=== PATIENT | male | born 1990 | race Hispanic/Latino ===

== ENCOUNTER 2017-10-02 21:29 | Emergency (ER) | payer SELFPAY ==
[2017-10-02 23:00] LABS: Absolute Lymphocytes (CBC) 2.5 K/uL (0.7-4.9); Absolute Monocytes 0.5 K/uL (0.1-1.3); Absolute Neutrophil 3.3 K/uL (1.8-8.0); Basophils % 0.7 % (0-1.3); Eosinophils % 2.6 % (0-4.4); Hematocrit 44.6 % (39.6-49.0); Lymphocytes % 38.6 % (15.3-44.8); MCH 28.5 pg (27.0-35.0); MCV 84.6 fL (80-100); MPV 8.5 fL (7.6-11.3); Monocytes % 7.4 % (3.3-12.3); RBC Red Blood Cell Count 5.27 M/uL (4.33-5.43)
[2017-10-02 23:04] LABS: Bicarbonate 28 mEq/L (21-31); Glucose Level 99 mg/dL (65-120); Potassium 3.5 mEq/L (3.6-5.0); Sodium Level 136 mEq/L (135-145)
[2017-10-02 23:05] LABS: BUN Blood Urea Nitrogen 10 mg/dL (6-20)
[2017-10-02 23:26] LABS: Urine Blood NEGATIVE (NEG); Urine Glucose NEGATIVE (NEG); Urine Protein NEGATIVE (NEG)
--- NOTE | 2017-10-03 00:08 | ER ---
Nurse's Notes [facility] Name: Franco Boone Age: 27 yrs Sex: Male : 1990 Arrival Date: 10/02/2017 Time: 21:33 Bed 15 Private MD: Diagnosis: Person with feared health complaint in whom no diagnosis is made Presentation: 10/02 21:38 Presenting complaint: Patient states: I have been very anxious, having a headache, and la1 dizzy for the past week. Transition of care: patient was not received from another setting of care. Onset of symptoms was October 02, 2017. Initial Sepsis Screen: Does the patient meet any 2 criteria? No. Patient's initial sepsis screen is negative. Does the patient have a suspected source of infection? No. Patient's initial sepsis screen is negative. Care prior to arrival: None. 21:38 Method Of Arrival: Ambulatory la1 21:38 Acuity: JOSE 3 la1 Historical: - Allergies: 21:39 No Known Allergies; la1 - PMHx: 21:39 None; la1 - Immunization history:: Adult Immunizations up to date. - Social history:: Smoking status: Patient/guardian denies using tobacco. Screenin:43 Abuse screen: Denies threats or abuse. Denies injuries from another. Nutritional mg2 screening: No deficits noted. Tuberculosis screening: No symptoms or risk factors identified. 22:06 Fall Risk None identified. mg2 Assessment: 22:04 General: Appears in no apparent distress. comfortable, Behavior is calm, cooperative. mg2 Pain: Complains of pain in head Pain does not radiate. Pain currently is 2 out of 10 on a pain scale. Quality of pain is described as aching, Pain began 1 week ago Is intermittent, Alleviated by rest. Neuro: Level of Consciousness is awake, alert, obeys commands, Oriented to person, place, time, situation. Cardiovascular: Capillary refill < 3 seconds Patient's skin is warm and dry. Respiratory: Airway is patent Respiratory effort is even, unlabored. GI: No signs and/or symptoms were reported involving the gastrointestinal system. : No signs and/or symptoms were reported regarding the genitourinary system. EENT: No signs and/or symptoms were reported regarding the EENT system. Derm: Skin is intact, Skin is pink, warm \T\ dry. normal. Musculoskeletal: No signs and/or symptoms reported regarding the musculoskeletal system. 10/03 00:30 Reassessment: Patient appears in no apparent distress at this time. Patient is alert, mg2 oriented x 3, equal unlabored respirations, skin warm/dry/pink. Discussed d/c \T\ f/u instructions with pt and mother; denies questions or concerns at this time Patient denies pain at this time. Patient states feeling better. Vital Signs: 10/02 21:39 BP 124 / 77; Pulse 92; Resp 19; Temp 98.2; Pulse Ox 100% on R/A; Weight 58.97 kg; la1 Height 5 ft. 5 in. (165.10 cm); 23:08 BP 130 / 74; Pulse 89; Resp 18; Pulse Ox 100% on R/A; Pain 0/10; mg2 23:18 BP 116 / 72 Supine; aa1 23:18 BP 132 / 72 Sitting; aa1 23:18 BP 135 / 85 Standing; aa1 10/03 00:30 BP 117 / 83; Pulse 79; Resp 16; Pulse Ox 98% on R/A; Pain 0/10; mg2 10/02 21:39 Body Mass Index 21.63 (58.97 kg, 165.10 cm) la1 ED Course: 10/02 21:33 Patient arrived in ED. es 21:39 Triage completed. la1 21:39 Arm band placed on left wrist. la1 21:42 Vj High, HAIM is Primary Nurse. mg2 21:47 Bobby Wahl PA is PHCP. cp 21:47 Anthony Joseph MD is Attending Physician. cp 22:06 Patient has correct armband on for positive identification. Bed in low position. Call mg2 light in reach. 23:00 XRAY Chest (1 view) In Process Unspecified. EDMS 23:06 No provider procedures requiring assistance completed. Inserted saline lock: 22 gauge mg2 in left antecubital area, using aseptic technique. Blood collected. Patient maintains SpO2 saturation greater than 95% on room air. 10/03 00:30 IV discontinued, intact, bleeding controlled, No redness/swelling at site. Pressure mg2 dressing applied. Administered Medications: No medications were administered Outcome: 00:08 Discharge ordered by . cp 00:30 Discharged to home ambulatory, with family. mg2 00:30 Condition: good 00:30 Discharge instructions given to patient, family, Instructed on discharge instructions, follow up and referral plans. Demonstrated understanding of instructions, follow-up care. 00:32 Patient left the ED. mg2 Signatures: Dispatcher [employer] Kim Gillespie, RN RN aa1 April Jeter Lee RN RN la1 Bobby Wahl PA PA cp [place], Michele RN RN mg2
--- NOTE | 2017-10-03 00:08 | EDPHYS ---
Physician Documentation [facility] Name: Franco Boone Age: 27 yrs Sex: Male : 1990 Arrival Date: 10/02/2017 Time: 21:33 Bed 15 Private MD: ED Physician Anthony Joseph HPI: 10/02 22:35 This 27 yrs old Male presents to ER via Ambulatory with complaints of Anxiety, cp Dizziness, Dehydration, Near Syncope. 22:35 The patient presents with dizziness. cp 22:35 Onset: The symptoms/episode began/occurred 1 week(s) ago, intermittent. Associated cp signs and symptoms: Pertinent positives: near-syncope, dehydration, anxiety, Pertinent negatives: abdominal pain, blurred vision, chest pain, focal weakness, headache, vomiting. Severity of symptoms: in the emergency department the symptoms none. Patient's baseline: Neuro: alert and fully oriented, Motor: no deficits, Ambulation: walks without assistance, Speech: normal. Historical: - Allergies: 21:39 No Known Allergies; la1 - PMHx: 21:39 None; la1 - Immunization history:: Adult Immunizations up to date. - Social history:: Smoking status: Patient/guardian denies using tobacco. ROS: 22:40 Constitutional: Negative for body aches, chills, fever, poor PO intake. cp 22:40 Eyes: Negative for injury, pain, redness, and discharge. cp 22:40 ENT: Negative for drainage from ear(s), ear pain, sore throat, difficulty swallowing, difficulty handling secretions. 22:40 Cardiovascular: Negative for chest pain, edema, palpitations. 22:40 Respiratory: Negative for cough, shortness of breath, wheezing. 22:40 Abdomen/GI: Negative for abdominal pain, nausea, vomiting, and diarrhea, constipation, anorexia, black/tarry stool, rectal bleeding. 22:40 Skin: Negative for cellulitis, rash. 22:40 Neuro: Negative for altered mental status, gait disturbance, headache, loss of consciousness, syncope, near syncope, weakness. 22:40 All other systems are negative. Exam: 22:45 Constitutional: The patient appears in no acute distress, alert, awake, cp non-diaphoretic, non-toxic, well developed, well nourished. 22:45 Head/Face: Normocephalic, atraumatic. Eyes: Pupils equal round and reactive to light, cp extra-ocular motions intact. Lids and lashes normal. Conjunctiva and sclera are non-icteric and not injected. Cornea within normal limits. Periorbital areas with no swelling, redness, or edema. ENT: Nares patent. No nasal discharge, no septal abnormalities noted. Tympanic membranes are normal and external auditory canals are clear. Oropharynx with no redness, swelling, or masses, exudates, or evidence of obstruction, uvula midline. Mucous membranes moist. Neck: Trachea midline, no thyromegaly or masses palpated, and no cervical lymphadenopathy. Supple, full range of motion without nuchal rigidity, or vertebral point tenderness. No Meningismus. Chest/axilla: Normal chest wall appearance and motion. Nontender with no deformity. No lesions are appreciated. Cardiovascular: Regular rate and rhythm with a normal S1 and S2. No gallops, murmurs, or rubs. Normal PMI, no JVD. No pulse deficits. Respiratory: Lungs have equal breath sounds bilaterally, clear to auscultation and percussion. No rales, rhonchi or wheezes noted. No increased work of breathing, no retractions or nasal flaring. Abdomen/GI: Soft, non-tender, with normal bowel sounds. No distension or tympany. No guarding or rebound. No evidence of tenderness throughout. Skin: Warm, dry with normal turgor. Normal color with no rashes, no lesions, and no evidence of cellulitis. Neuro: Awake and alert, GCS 15, oriented to person, place, time, and situation. Cranial nerves II-XII grossly intact. Motor strength 5/5 in all extremities. Sensory grossly intact. Cerebellar exam normal. Normal gait. 22:52 ECG was reviewed by the Attending Physician. cp Vital Signs: 21:39 BP 124 / 77; Pulse 92; Resp 19; Temp 98.2; Pulse Ox 100% on R/A; Weight 58.97 kg; la1 Height 5 ft. 5 in. (165.10 cm); 23:08 BP 130 / 74; Pulse 89; Resp 18; Pulse Ox 100% on R/A; Pain 0/10; mg2 23:18 BP 116 / 72 Supine; aa1 23:18 BP 132 / 72 Sitting; aa1 23:18 BP 135 / 85 Standing; aa1 10/03 00:30 BP 117 / 83; Pulse 79; Resp 16; Pulse Ox 98% on R/A; Pain 0/10; mg2 10/02 21:39 Body Mass Index 21.63 (58.97 kg, 165.10 cm) la1 MDM: 10/02 21:47 Patient medically screened. 23:00 Differential diagnosis: cardiac arrhythmia, hypovolemia, idiopathic dizziness, vertigo, cp electrolyte abnormality. 10/03 00:05 Data reviewed: vital signs, nurses notes, lab test result(s), EKG, and as a result, I cp will discharge patient. 00:05 Test interpretation: by ED physician or midlevel provider: ECG. 00:05 Counseling: I had a detailed discussion with the patient and/or guardian regarding: the cp historical points, exam findings, and any diagnostic results supporting the discharge/admit diagnosis, lab results, the need for outpatient follow up, a family practitioner, to return to the emergency department if symptoms worsen or persist or if there are any questions or concerns that arise at home. 10/02 22:32 Order name: Basic Metabolic Panel; Complete Time: 23:31 cp 10/02 23:31 Interpretation: Normal except: K 3.5. 10/02 22:32 Order name: CBC with Diff; Complete Time: 23:31 10/02 23:32 Interpretation: Reviewed. 10/02 22:32 Order name: EKG; Complete Time: 22:32 cp 10/02 22:32 Order name: Magnesium; Complete Time: 23:31 cp 10/02 22:32 Order name: XRAY Chest (1 view) 10/02 23:23 Order name: Urine Dipstick--Ancillary (enter results); Complete Time: 23:31 mw2 10/02 23:32 Interpretation: Normal except: UESTR TRACE. 10/02 22:32 Order name: Orthostatics; Complete Time: 00:24 cp 10/02 22:32 Order name: EKG - Nurse/Tech; Complete Time: 23:06 10/02 22:32 Order name: Cardiac monitoring; Complete Time: 23:06 10/02 22:32 Order name: IV Saline Lock; Complete Time: 23:06 cp 10/02 22:32 Order name: Labs collected and sent; Complete Time: 23:06 10/02 22:32 Order name: O2 Per Protocol; Complete Time: 23:06 cp 10/02 22:32 Order name: O2 Sat Monitoring; Complete Time: 23:06 cp 10/02 22:32 Order name: Urine Dipstick-Ancillary (obtain specimen); Complete Time: 00:24 cp EC/20 22:52 Rate is 86 beats/min. Rhythm is regular. IN interval is normal. QRS interval is normal. cp QT interval is normal. No ST changes noted. Interpreted by me. Reviewed by me. Administered Medications: No medications were administered Disposition: 10/03 06:23 Co-signature as Attending Physician, Anthony Joseph MD. henry Disposition: 10/03/17 00:08 Discharged to Home. Impression: Person with feared health complaint in whom no diagnosis is made. - Condition is Stable. - Medication Reconciliation Form, Thank You Letter, Antibiotic Education, Prescription Opioid Use, Work release form form. - Follow up: Private Physician; When: 1 - 2 days; Reason: Recheck today's complaints. - Problem is new. - Symptoms have improved. Signatures: Dispatcher [employer] EDMS Anthony Joseph MD MD pkl Gilberto Lowery RN RN la1 Bobby Wahl PA PA cp Vj High RN RN mg2 Corrections: (The following items were deleted from the chart) 00:09 00:08 10/03/2017 00:08 Discharged to Home. Impression: Dizziness. Condition is Stable. cp Forms are Medication Reconciliation Form, Thank You Letter, Antibiotic Education, Prescription Opioid Use. Follow up: Private Physician; When: 1 - 2 days; Reason: Recheck today's complaints. Problem is new. Symptoms have improved. cp 00:32 00:09 10/03/2017 00:08 Discharged to Home. Impression: Person with feared health mg2 complaint in whom no diagnosis is made. Condition is Stable. Discharge Instructions: Dehydration, Adult, Dizziness. Forms are Medication Reconciliation Form, Thank You Letter, Antibiotic Education, Prescription Opioid Use. Follow up: Private Physician; When: 1 - 2 days; Reason: Recheck today's complaints. Problem is new. Symptoms have improved. cp
--- NOTE | 2017-10-03 07:59 | EKG ---
Test Date: 2017-10-02 Test Time: 22:46:56 Multifocal Button Generator: MG MEASUREMENT RESULTS: Intervals: Rate: 86 [place]: 136 QRSD: 98 QT: 370 QTc: 442 [place]: P: 61 AZ: 136 QRS: 69 T: 50 INTERPRETIVE STATEMENTS: Normal sinus rhythm with sinus arrhythmia Normal ECG No previous ECG available for comparison Electronically Signed On 10-03-17 07:58:28 CDT by Monico Wells
--- NOTE | 2017-10-03 09:11 | RAD REPORT ---
EXAM DESCRIPTION: Eric Single View10/02/2017 11:00 pm CLINICAL HISTORY: Chest pain COMPARISON: none FINDINGS: The lungs appear clear of acute infiltrate. The heart is normal size IMPRESSION: No acute abnormalities displayed
== END 2017-10-03 00:32 | disposition home or self-care (01) ==
LOC: ER 21:29
DX: Z71.1 Person with feared health complaint in whom no diagnosis is made (principal)
CPT/HCPCS: 36415; 71045; 80048; 81003; 83735; 85025; 93005; 99284

== ENCOUNTER 2018-12-27 14:59 | Emergency (ER) | payer SELFPAY ==
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
--- NOTE | 2018-12-27 16:53 | RAD REPORT ---
EXAM DESCRIPTION: Eric Single View12/27/2018 3:33 pm CLINICAL HISTORY: Chest pain COMPARISON: 09/2017 FINDINGS: The lungs appear clear of acute infiltrate. The heart is normal size IMPRESSION: No acute abnormalities displayed
== END 2018-12-27 16:56 | disposition home or self-care (01) ==
LOC: ER 14:59
DX: R07.89 Other chest pain (principal); V43.53XA Car driver injured in collision with pick-up truck in traffic accident, initial encounter
CPT/HCPCS: 70450; 71045; 72125

== ENCOUNTER 2020-12-08 09:42 | Emergency (ER) | payer SELFPAY ==
[2020-12-08] MEDS ORDERED: LORAZEPAM 1 MG TABLET ONE (10:16)
--- NOTE | 2020-12-09 08:01 | EKG ---
Test Date: 2020-12-08 Test Time: 10:01:36 Criminal Justice Social Worker: PH MEASUREMENT RESULTS: Intervals: Rate: 95 IL: 130 QRSD: 86 QT: 350 QTc: 439 [place]: P: 40 IL: 130 QRS: 51 T: 35 INTERPRETIVE STATEMENTS: Normal sinus rhythm with sinus arrhythmia Normal ECG Compared to ECG 10/02/2017 22:46:56 No significant changes Electronically Signed On 12-09-20 07:57:50 CDT by Poncho Borden
--- NOTE | 2020-12-09 17:17 | EDPHYS ---
Physician Documentation [facility] Name: Franco Boone Age: 30 yrs Sex: Male : 1990 Arrival Date: 12/08/2020 Time: 09:47 Bed 15 Private MD: ED Physician Donavon Church HPI: 12/08 10:04 This 30 yrs old Male presents to ER via EMS with complaints of Anxiety. 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 Onset: The symptoms/episode rn began/occurred just prior to arrival. Duration: The symptoms are continuous, but are markedly better than the original presentation. The patient's shortness of breath is aggravated by nothing, is alleviated by rest. Associated signs and symptoms: Pertinent positives: numbness in extremities, Pertinent negatives: non-productive cough, productive cough, fever, hemoptysis. Severity of symptoms: At their worst the symptoms were moderate in the emergency department the symptoms have improved. The patient has experienced similar episodes in the past. The patient has not recently seen a physician. 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 Has happened multiple times before, has anxiety. Feels much better now with no intervention other than supplemental oxygen. Denies chest pain. No recent illness or infectious symptoms.. Historical: - Allergies: 09:49 No Known Allergies; ph - PMHx: :49 Anxiety; ph - Immunization history:: Client reports having NOT received the Covid vaccine. - Social history:: Smoking status: Patient/guardian denies using tobacco, Stopped _ months ago 2. - Family history:: not pertinent. - Hospitalizations: : No recent hospitalization is reported. ROS: 10:04 Constitutional: Negative for fever, chills, and weight loss, Eyes: Negative for injury, rn pain, redness, and discharge, Neck: Negative for injury, pain, and swelling, Cardiovascular: Negative for chest pain, palpitations, and edema, Respiratory: Negative for cough, wheezing, and pleuritic chest pain, Abdomen/GI: Negative for abdominal pain, nausea, vomiting, diarrhea, and constipation, : Negative for injury, bleeding, discharge, and swelling, MS/Extremity: Negative for injury and deformity, Skin: Negative for injury, rash, and discoloration, Neuro: Negative for headache, weakness, numbness, tingling, and seizure. Exam: 10:04 Constitutional: This is a well developed, well nourished patient who is awake, alert, rn and in no acute distress. Head/Face: Normocephalic, atraumatic. Eyes: Pupils equal round and reactive to light, extra-ocular motions intact. Lids and lashes normal. Conjunctiva and sclera are non-icteric and not injected. Cornea within normal limits. Periorbital areas with no swelling, redness, or edema. ENT: No stridor or oral swelling Cardiovascular: Regular rate and rhythm . No pulse deficits. Respiratory: Speaking full sentences, unlabored. No increased work of breathing, no retractions or nasal flaring. Abdomen/GI: Soft, non-tender Skin: Warm, dry MS/ Extremity: Pulses equal, no cyanosis Neuro: Awake and alert, GCS 15, oriented to person, place, time, and situation. Cranial nerves II-XII grossly intact. Motor strength 5/5 in all extremities. Sensory grossly intact. 10:11 ECG was reviewed by the Attending Physician. rn Vital Signs: 10:18 BP 118 / 83; Pulse 84; Resp 18; Temp 97.8; Pulse Ox 99% on R/A; Weight 58.97 kg; Height ph 5 ft. 5 in. (165.10 cm); 11:02 BP 112 / 78; Pulse 82; Resp 18; Temp 97.3; Pulse Ox 99% on R/A; ph 10:18 Body Mass Index 21.63 (58.97 kg, 165.10 cm) ph MDM: 09:48 Patient medically screened. rn 10:28 Differential diagnosis: Anxiety Reaction Psychogenic Arrhythmia, palpitations. Data rn reviewed: vital signs, nurses notes, EKG, and as a result, I will discharge patient. Counseling: I had a detailed discussion with the patient and/or guardian regarding: the historical points, exam findings, and any diagnostic results supporting the discharge/admit diagnosis, the need for outpatient follow up, to return to the emergency department if symptoms worsen or persist or if there are any questions or concerns that arise at home. Special discussion: I discussed with the patient/guardian in detail that at this point there is no indication for admission to the hospital. It is understood, however, that if the symptoms persist or worsen the patient needs to return immediately for re-evaluation. ED course: Normal vital signs, normal EKG, improved with p.o. Ativan. Will DC home with PCP follow-up. Instructed to follow-up with psychiatry if anxiety worsens.. 12/08 09:48 Order name: EKG; Complete Time: 09:49 rn 12/08 09:48 Order name: EKG - Nurse/Tech; Complete Time: 10:18 rn EC:11 Rate is 95 beats/min. Rhythm is regular. QRS [place] is Normal. NV interval is normal. QRS rn interval is normal. QT interval is normal. No Q waves. T waves are Normal. No ST changes noted. Clinical impression: Normal ECG. Interpreted by me. Reviewed by me. Administered Medications: 10:18 Drug: Ativan (LORazepam) 1 mg Route: PO; ph 11:03 Follow up: Response: No adverse reaction; Anxiety decreased ph Disposition Summary: 12/08/20 10:30 Discharge Ordered Location: Home rn Problem: new rn Symptoms: have improved rn Condition: Stable rn Diagnosis - Hyperventilation rn - Anxiety disorder, unspecified rn Followup: rn - With: Private Physician - When: As needed - Reason: Recheck today's complaints, Re-evaluation by your physician Discharge Instructions: - Discharge Summary Sheet rn - Panic Attack rn - Hyperventilation rn - Generalized Anxiety Disorder, Adult rn Forms: - Medication Reconciliation Form rn - Thank You Letter rn - 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
--- NOTE | 2020-12-09 17:17 | ER ---
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 Coronavirus screen: Client denies travel out of the [place] in the last 14 days. At this time, the client does not indicate any symptoms associated with coronavirus-19. Ebola Screen: No symptoms or risks identified at this time. Initial Sepsis Screen: Does the patient meet any 2 criteria? No. Patient's initial sepsis screen is negative. Does the patient have a suspected source of infection? No. Patient's initial sepsis screen is negative. Risk Assessment: Do you want to hurt yourself or someone else? Patient reports no desire to harm self or others. Onset of symptoms was December 08, 2020. 09:47 Method Of Arrival: EMS: [facility] 09:47 Acuity: JOSE 3 ph Historical: - Allergies: 09:49 No Known Allergies; ph - PMHx: 09:49 Anxiety; ph - Immunization history:: Client reports having NOT received the Covid vaccine. - Social history:: Smoking status: Patient/guardian denies using tobacco, Stopped _ months ago 2. - Family history:: not pertinent. - Hospitalizations: : No recent hospitalization is reported. Screenin:50 Abuse screen: Denies threats or abuse. Denies injuries from another. Nutritional ph screening: No deficits noted. Tuberculosis screening: No symptoms or risk factors identified. Fall Risk None identified. Assessment: 10:18 General: Appears in no apparent distress. 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 Pain: Denies pain. Neuro: Level of Consciousness is awake, alert, obeys commands, Oriented to person, place, time, situation. Cardiovascular: Capillary refill < 3 seconds in bilateral fingers Patient's skin is warm and dry. Rhythm is sinus rhythm. Respiratory: Airway is patent Respiratory effort is even, unlabored, Respiratory pattern is regular, symmetrical. Derm: Skin is intact, is healthy with good turgor, Skin is pink, warm \T\ dry. Musculoskeletal: Circulation, motion, and sensation intact. Range of motion: intact in all extremities. 11:02 Reassessment: Patient appears in no apparent distress at this time. Patient and/or ph family updated on plan of care and expected duration. Pain level reassessed. Patient is alert, oriented x 3, equal unlabored respirations, skin warm/dry/pink. Vital Signs: 10:18 BP 118 / 83; Pulse 84; Resp 18; Temp 97.8; Pulse Ox 99% on R/A; Weight 58.97 kg; Height ph 5 ft. 5 in. (165.10 cm); 11:02 BP 112 / 78; Pulse 82; Resp 18; Temp 97.3; Pulse Ox 99% on R/A; ph 10:18 Body Mass Index 21.63 (58.97 kg, 165.10 cm) ph ED Course: 09:47 Patient arrived in ED. ph 09:48 Donavon Church MD is Attending Physician. rn 09:49 Triage completed. ph 09:49 Arm band placed on Patient placed in an exam room, on a stretcher. ph 09:50 Cheyanne Bansal RN is Primary Nurse. ph 09:50 Patient has correct armband on for positive identification. Placed in gown. Bed in low ph position. Call light in reach. Side rails up X 1. Pulse ox on. NIBP on. 11:03 No provider procedures requiring assistance completed. Patient did not have IV access ph during this emergency room visit. Administered Medications: 10:18 Drug: Ativan (LORazepam) 1 mg Route: PO; ph 11:03 Follow up: Response: No adverse reaction; Anxiety decreased ph Outcome: 10:30 Discharge ordered by . rn 11:03 Discharged to home ambulatory. ph 11:03 Condition: good 11:03 Discharge instructions given to patient, Instructed on discharge instructions, follow up and referral plans. Demonstrated understanding of instructions, follow-up care. 11:03 Patient left the ED. ph Signatures: Donavon Church MD MD rn PhoenixCheyanne RN RN ph
[2020-12-10 05:49] VITALS: O2SAT 99
[2020-12-10 05:51] VITALS: BP 112/78; TEMP 97.3
== END 2020-12-08 11:03 | disposition home or self-care (01) ==
LOC: ER 09:42
DX: R06.4 Hyperventilation (principal); F41.9 Anxiety disorder, unspecified
CPT/HCPCS: 93005

== ENCOUNTER 2021-01-05 11:33 | Emergency (ER) | payer SELFPAY ==
--- NOTE | 2021-01-05 13:48 | EDPHYS ---
Physician Documentation [facility] Name: Franco Boone Age: 30 yrs Sex: Male : 1990 Arrival Date: 01/05/2021 Time: 11:34 Bed 10 Private MD: ED Physician Donavon Church HPI: 01/05 13:44 This 30 yrs old Male presents to ER via Ambulatory with complaints of Acid jr8 Reflux - SOB. 13:44 Onset: The symptoms/episode began/occurred gradually. Modifying factors: The patient jr8 symptoms are alleviated by nothing, the patient symptoms are aggravated by eating food. The patient has experienced a previous episode. The patient has not recently seen a physician. This is a 30-year-old male that presented to the emergency room with complaints of gastroesophageal reflux. Stated that he has had this in the past and was treating it with naturopathic modalities. Stated that those modalities started to give him chest pain so had quit. Now having increased burning sensation, chest pain and shortness of breath for the reflux. Stated that is making him feel bloated. Denies hematemesis, hematochezia, melena. Historical: - Allergies: 12:52 No Known Allergies; kg - Home Meds: 12:52 [place] Anxiety \T\ Tension oral spray [Active]; betaine HCl 300 mg oral tab [Active]; kg - PMHx: 12:52 Anxiety; GERD; Gastritis; kg - PSHx: 12:52 None; kg - Immunization history:: Adult Immunizations not up to date, Client reports having NOT received the Covid vaccine. - Social history:: Smoking status: Patient/guardian denies using tobacco, Stopped _ months ago 5. ROS: 13:44 Eyes: Negative for injury, pain, redness, and discharge, ENT: Negative for injury, jr8 pain, and discharge, Neck: Negative for injury, pain, and swelling, Abdomen/GI: Positive for epigastric pain. Negative for nausea, vomiting, diarrhea, constipation Back: Negative for injury and pain, MS/Extremity: Negative for injury and deformity, Skin: Negative for injury, rash, and discoloration, Neuro: Negative for headache, weakness, numbness, tingling, and seizure. 13:44 Cardiovascular: Positive for chest pain, Negative for edema, orthopnea, palpitations, paroxysmal nocturnal dyspnea. 13:44 Respiratory: Positive for shortness of breath, Negative for cough, dyspnea on exertion, sputum production, wheezing. Exam: 13:44 Constitutional: This is a well developed, well nourished patient who is awake, alert, jr8 and in no acute distress. ENT: Nares patent. No nasal discharge, no septal abnormalities noted. Tympanic membranes are normal and external auditory canals are clear. Oropharynx with no redness, swelling, or masses, exudates, or evidence of obstruction, uvula midline. Mucous membranes moist. Cardiovascular: Regular rate and rhythm with a normal S1 and S2. No gallops, murmurs, or rubs. Normal PMI, no JVD. No pulse deficits. Respiratory: Lungs have equal breath sounds bilaterally, clear to auscultation and percussion. No rales, rhonchi or wheezes noted. No increased work of breathing, no retractions or nasal flaring. Abdomen/GI: Soft, non-tender, with normal bowel sounds. No distension or tympany. No guarding or rebound. No evidence of tenderness throughout. Back: No spinal tenderness. No costovertebral tenderness. Full range of motion. Skin: Warm, dry with normal turgor. Normal color with no rashes, no lesions, and no evidence of cellulitis. MS/ Extremity: Pulses equal, no cyanosis. Neurovascular intact. Full, normal range of motion. Neuro: Awake and alert, GCS 15, oriented to person, place, time, and situation. Cranial nerves II-XII grossly intact. Motor strength 5/5 in all extremities. Sensory grossly intact. Vital Signs: 12:50 BP 114 / 72; Pulse 84; Resp 20; Temp 98.6(TE); Pulse Ox 98% on R/A; Weight 58.97 kg kg (R); Height 5 ft. 5 in. (165.10 cm) (R); Pain 4/10; 12:50 Body Mass Index 21.63 (58.97 kg, 165.10 cm) kg MDM: 13:33 Patient medically screened. jr8 13:46 Data reviewed: vital signs, nurses notes, EKG. Data interpreted: Pulse oximetry: on jr8 room air is 98 %. Interpretation: normal. 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 ED course: Discussed with patient that we will put him on a proton pump inhibitor. Needs to follow-up with gastroenterology for further evaluation and assessment of his continued reflux disease. If he were to worsen at any point time in between now and then to come back for further evaluation. Patient good with plan at this time.. 01/05 13:46 Order name: EKG - Nurse/Tech; Complete Time: 13:53 jr8 Administered Medications: No medications were administered Disposition: 17:28 Co-signature as Attending Physician, Donavon Church MD I agree with the assessment and rn plan of care. Attestation: The patient's history, exam findings, diagnostics, and a summary of any interventions or procedures was reviewed in detail with Simba RUEDA. Disposition Summary: 01/05/21 13:48 Discharge Ordered Location: Home jr Problem: new jr8 Symptoms: have improved jr8 Condition: Stable jr8 Diagnosis - Gastro-esophageal reflux disease without esophagitis jr8 Followup: jr8 - With: Dell Velez MD - When: 1 week - Reason: Recheck today's complaints, Continuance of care, Re-evaluation by your physician Discharge Instructions: - Discharge Summary Sheet jr8 - Food Choices for Gastroesophageal Reflux Disease, Adult jr8 - Gastroesophageal Reflux Disease, Adult, [id number] jr8 Forms: - Medication Reconciliation Form jr8 - Thank You Letter jr8 - Antibiotic Education jr8 - Prescription Opioid Use jr8 Prescriptions: - omeprazole 40 mg Oral capsule,delayed release(DR/EC) - take 1 capsule by ORAL route once daily before a meal; 30 capsule; Refills: 0, jr8 Product Selection Permitted Signatures: Donavon Church MD MD rn Roszak, Josh, PA PA jr8 Lexus Ibarra RN RN kg
--- NOTE | 2021-01-05 13:48 | ER ---
Nurse's Notes [facility] Name: Franco Boone Age: 30 yrs Sex: Male : 1990 Arrival Date: 01/05/2021 Time: 11:34 Bed 10 Private MD: Diagnosis: Gastro-esophageal reflux disease without esophagitis Presentation: 01/05 12:50 Chief complaint: Patient states: Heart burn, vomiting acid, light headed, dizzy, kg difficult to breath, anxiety attacks x 2 months. Pt states that he has been diagnosed with gastritis and GERD in the past and trying to deal with it using homeopathic remedies. Coronavirus screen: Client denies travel out of the [place] in the last 14 days. At this time, unable to obtain information related to travel outside the [place] At this time, the client does not indicate any symptoms associated with coronavirus-19. Ebola Screen: Patient negative for fever greater than or equal to 101.5 degrees Fahrenheit, and additional compatible Ebola Virus Disease symptoms Patient denies exposure to infectious person. Patient denies travel to an Ebola-affected area in the 21 days before illness onset. No symptoms or risks identified at this time. Initial Sepsis Screen: Does the patient meet any 2 criteria? No. Patient's initial sepsis screen is negative. Does the patient have a suspected source of infection? No. Patient's initial sepsis screen is negative. Risk Assessment: Do you want to hurt yourself or someone else? Patient reports no desire to harm self or others. Onset of symptoms is unknown. 12:50 Method Of Arrival: Ambulatory kg 12:50 Acuity: JOSE 4 kg Triage Assessment: 12:52 General: Appears in no apparent distress. Behavior is calm, cooperative, appropriate kg for age, quiet. Pain: Complains of pain in epigastric area Pain does not radiate. Pain currently is 4 out of 10 on a pain scale. at worst was 8 out of 10 on a pain scale. level that patient reports is acceptable is 3 out of 10 on a pain scale. Historical: - Allergies: 12:52 No Known Allergies; kg - Home Meds: 12:52 Mason Anxiety \\T\\ Tension oral spray [Active]; betaine HCl 300 mg oral tab [Active]; kg - PMHx: 12:52 Anxiety; GERD; Gastritis; kg - PSHx: 12:52 None; kg - Immunization history:: Adult Immunizations not up to date, Client reports having NOT received the Covid vaccine. - Social history:: Smoking status: Patient/guardian denies using tobacco, Stopped _ months ago 5. Screenin:56 Abuse screen: Denies threats or abuse. Denies injuries from another. Nutritional kg screening: No deficits noted. Tuberculosis screening: No symptoms or risk factors identified. Fall Risk None identified. Assessment: 13:29 General: Appears in no apparent distress. comfortable, Behavior is calm, cooperative. ss Pain: Complains of pain in epigastric area Pain currently is 3 out of 10 on a pain scale. Quality of pain is described as burning, Is intermittent. Neuro: Level of Consciousness is awake, alert, obeys commands, Oriented to person, place, time, situation, Cell Cleaner are equal bilaterally. Cardiovascular: Capillary refill < 3 seconds is brisk in bilateral fingers. Respiratory: Reports "It's like at times I just can't get a good breath. I can breath, but just not take a good breath." Airway is patent Respiratory effort is even, unlabored, Respiratory pattern is regular, symmetrical. GI: Reports Intermittent acid reflux/ heart burn that began 2 months ago. Pt reports that when he would take medication it would help, but the meds seemed to be giving him chest pain, so he quit taking it. : No signs and/or symptoms were reported regarding the genitourinary system. EENT: Nares are clear Oral mucosa is moist. Throat is clear. Derm: Skin is intact, is healthy with good turgor, Skin is pink, warm \\T\\ dry. normal. Musculoskeletal: Circulation, motion, and sensation intact. Range of motion: intact in all extremities, Swelling absent. Vital Signs: 12:50 BP 114 / 72; Pulse 84; Resp 20; Temp 98.6(TE); Pulse Ox 98% on R/A; Weight 58.97 kg kg (R); Height 5 ft. 5 in. (165.10 cm) (R); Pain 4/10; 12:50 Body Mass Index 21.63 (58.97 kg, 165.10 cm) kg ED Course: 11:34 Patient arrived in ED. ds1 12:52 Triage completed. kg 12:52 Arm band placed on left wrist. kg 12:56 Patient has correct armband on for positive identification. kg 13:26 Simba Diza PA is PHCP. jr8 13:26 Donavon Church MD is Attending Physician. jr8 13:29 Aurelia Contreras, HAIM is Primary Nurse. ss 13:47 Dell Velez MD is Referral Physician. jr8 14:12 No provider procedures requiring assistance completed. Patient did not have IV access ss during this emergency room visit. Administered Medications: No medications were administered Outcome: 13:48 Discharge ordered by . jr8 14:12 Discharged to home ambulatory. ss 14:12 Condition: good 14:12 Discharge instructions given to patient, Instructed on discharge instructions, follow up and referral plans. medication usage, Demonstrated understanding of instructions, follow-up care, medications. 14:12 Patient left the ED. ss Signatures: Merlene Caldwell ds1 Aurelia Contreras, RN RN ss Simba Diaz PA PA jr8 Lexus Ibarra RN RN kg
[2021-01-05 14:21] VITALS: BP 114/72; TEMP 98.6; O2SAT 98
--- NOTE | 2021-01-06 07:38 | EKG ---
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
== END 2021-01-05 14:12 | disposition home or self-care (01) ==
LOC: ER 11:33
DX: K21.9 Gastro-esophageal reflux disease without esophagitis (principal); F41.9 Anxiety disorder, unspecified
CPT/HCPCS: 93005; 99281